=== PATIENT | male | born 1990 | race Caucasian/White ===

== ENCOUNTER 2022-06-18 10:36 | Inpatient (IN) | payer SELFPAY ==
[2022-06-18 10:40] VITALS: BP 115/79; PULSE 70; RESP 18; TEMP 36.8; O2SAT 99; BMI 21.5
--- NOTE | 2022-06-18 10:49 | ED_ITS ---
Documented by User: RIVAS Fagan 06/18/22 16:07 HPI - Abdominal Pain General: Chief Complaint: Abdominal Pain Stated Complaint: abd pain Time Seen by Provider: 06/18/22 10:38 Source: patient Mode of arrival: ambulatory Limitations: no limitations History of Present Illness: Patient is a nice 31-year-old male who presents to ED today with a complaint of abdominal pain over the past 3 to 4 days. Patient tells me when pain started it felt like he initially had eaten too much . He states since that time he has had fairly constant pain throughout his upper abdomen and periumbilical regions with exacerbations of significant discomfort. Patient states he was initially seen at [facility] and had labs and CT imaging performed. He states these were essentially normal although triage mentioned he had told them something regarding elevated liver enzymes. Patient was seen at [place] [facility] yesterday and had lab work performed but no imaging completed. Patient tells me last night his pain was the worst it had been since onset. He states he is having repetitive episodes of nausea and vomiting. Denies bloody emesis. He is having small bowel movements and passing flatulence. No fevers. Patient denies any previous episodes. No previous abdominal surgeries. He is an otherwise healthy 31-year-old male with no significant PMH and takes no medications. Denies alcohol use. Denies heavy NSAID use-has been taking ibuprofen since pain started. MD elicited complaint: abdominal pain Pertinent past history: none Onset (ago): day(s) Pain Consistency: constant Location: Epigastric, Periumbilical and RUQ Severity: severe Quality: cramping, stabbing and sharp Radiation: none Migration to: no migration Exacerbating factors: eating and other (lying flat) Relieving factors: nothing Associated Symptoms: Reports nausea and vomiting; Denies chills, diarrhea, dysuria, fever(s), heartburn, hematochezia, hematemesis and melena Review of Systems Const: Denies: fever(s), chills, body aches, fatigue or malaise Card: Denies: chest pain Resp: Denies: dyspnea GI: Reports: abdominal pain, nausea and vomiting; Denies: hematemesis, heartburn, diarrhea, hematochezia or melena : Denies: flank pain or dysuria Musc: Denies: neck pain, back pain, extremity pain or joint pain Skin/Breast: Denies: rash Neuro: Denies: headache(s), numbness in extremities, weakness in extremities or sensory changes Physical Exam Const: COMMON NORMALS: average body habitus, patient oriented x3, no limitations, healthy appearing, alert and well nourished GENERAL APPEARANCE: cooperative and in distress (appears uncomfortable) HENMT: COMMON NORMALS: normocephalic and atraumatic HEAD & SCALP: normal to inspection, normocephalic and atraumatic Chest: COMMONS NORMALS: normal inspection of the chest and normal palpation of entire chest wall Resp: COMMON NORMALS: normal respiratory effort and clear to auscultation bilaterally AUSCULTATION: clear to auscultation bilaterally Cardio: COMMON NORMALS: regular rate and regular rhythm RATE: regular rate RHYTHM: regular rhythm GI: COMMON NORMALS: No hepatosplenomegaly present and no masses INSPECTION: Yes normal to inspection AUSCULTATION: Yes Hypoactive bowel sounds present PALPATION: Yes Tenderness to palpation present (GI) (epigastric, RUQ, periumbilical; guarding present ), Yes Guarding due to palpation present (GI), No Rigid due to palpation and Yes No hepatosplenomegaly present : COMMON NORMALS: Yes no CVA tenderness BLADDER/KIDNEY EXAM: Yes no CVA tenderness Back/Pelvis: COMMON NORMALS: no CVA tenderness, thoracic and lumbar spine normal to inspection, no thoracic nor lumbar tenderness and thoraco-lumbar ROM normal Extremity: COMMON NORMALS: normal to inspection GENERAL: Yes normal exam except as noted Neuro: HOWARD COMA SCALE: document GCS findings [place] coma scale eye opening: Spontaneous Howard coma scale verbal response: Orientated [place] coma scale motor response: Obey commands Howard coma scale total score: 15 COMMON NORMALS: patient oriented x3, moves all extremities, no focal motor deficits and no sensory deficits noted SENSORIUM/ORIENTATION: Yes alert Skin: COMMON NORMALS: no rashes or lesions noted GENERAL SKIN EXAM: no rashes or lesions noted Course Consultations: Consultation #1: Dr. Cunningham-will evaluate in ED; following evaluation he will admit to his service. Vital Signs: Vital signs: Vital Signs Temperature 98.2 F 06/18/22 10:40 Pulse Rate 70 06/18/22 10:40 Respiratory Rate 18 06/18/22 11:17 Blood Pressure 115/79 06/18/22 10:40 Pulse Oximetry 99 06/18/22 10:40 Oxygen Delivery Me thod 06/18/22 10:40 MDM - Abdominal Pain Lab Data : 06/18/22 11:00 06/18/22 11:00 Labs/Radiology: Radiology Impressions Gallbladder Ultrasound 06/18/22 11:00 IMPRESSION: 1. Cholelithiasis with mild gallbladder wall thickening and mild dilatation common bile duct suspicious for acute cholecystitis. 2. Mild edema in the pancreatic head suspicious for pancreatitis. 3. Dilatation common bile duct measuring 8.1 mm recommend further evaluation with MRCP to exclude choledocholithiasis and gallstone pancreatitis. 4. No hydronephrosis in RIGHT kidney. Notified RIVAS Fagan at 06/18/2022 12:23 PM. Abdomen/Pelvis CT 06/18/22 11:19 IMPRESSION: 1. Inflammatory stranding and edema about the head of the pancreas extending into the gallbladder fossa and about the duodenal C-loop suspicious for pancreatitis or cholecystitis. Mild gallbladder wall thickening. No drainable fluid collections. 2. Mild dilatation of the common bile duct measuring 8 mm. This can be further evaluated MRCP to exclude choledocholithiasis and gallstone pancreatitis. 3. Small amount of free fluid in the cul-de-sac. 4. No other acute findings. Notified RIVAS Fagan at 06/18/2022 12:20 PM. Cholangiopancreatography MRI 06/18/22 11:57 Impression: 1. No evidence of choledocholithiasis. Mild prominence of the common bile duct measuring 7.5 mm. No pancreatic ductal dilatation. 2. Above described findings suspicious for cholecystitis. 3. Mild edema in the head and proximal body of the pancreas may be reactive from cholecystitis versus pancreatitis. Correlation with pancreatic enzymes. 4. No hydronephrosis in either kidney. 5. No other suspicious findings. Laboratory Results WBC 13.6 10^3/uL (4.0-10.0) H 06/18/22 11:00 RBC 4.99 10^6/uL (4.1-5.3) 06/18/22 11:00 Hgb 15.1 g/dL (11.7-16.6) 06/18/22 11:00 Hct 46.0 % (42.0-52.0) 06/18/22 11:00 MCV 92.2 fl (80-94) 06/18/22 11:00 MCH 30.3 pg (28.0-34.0) 06/18/22 11:00 MCHC 32.8 g/dL (30.0-36.0) 06/18/22 11:00 RDW 13.2 % (12.1-15.1) 06/18/22 11:00 Plt Count 255 10^3/cmm (130-400) 06/18/22 11:00 MPV 10.0 fL (7.4-10.4) 06/18/22 11:00 Neut % (Auto) 79.1 % 06/18/22 11:00 Lymph % (Auto) 12.3 % 06/18/22 11:00 [place] % (Auto) 7.2 % 06/18/22 11:00 Eos % (Auto) 0.8 % 06/18/22 11:00 Baso % (Auto) 0.2 % 06/18/22 11:00 Neut # (Auto) 10.77 10^3/uL (1.8-7.7) H 06/18/22 11:00 Lymph # (Auto) 1.7 10^3/uL (0.8-4.8) 06/18/22 11:00 [place] # (Auto) 1.0 10^3/uL (0.2-0.9) H 06/18/22 11:00 Eos # (Auto) 0.1 10^3/uL (0.0-0.8) 06/18/22 11:00 Baso # (Auto) 0.0 10^3/uL (0.0-0.1) 06/18/22 11:00 Nucleated RBC % (auto) 0 % 06/18/22 11:00 Nucleated RBCs # 0.0 /100WBC 06/18/22 11:00 Sodium 137 mmol/L (136-145) 06/18/22 11:00 Potassium 3.9 mmol/L (3.5-5.1) 06/18/22 11:00 Chloride 100 mmol/L (98-107) 06/18/22 11:00 Carbon Dioxide 24 mmol/L (22-29) 06/18/22 11:00 Anion Gap 16.9 (5-19) 06/18/22 11:00 BUN 10 mg/dL (6-20) 06/18/22 11:00 Creatinine 0.5 mg/dL (0.7-1.2) L 06/18/22 11:00 GFR Calculation 196.6 mL/min (90-130) H 06/18/22 11:00 Glucose 100 mg/dL (65-115) 06/18/22 11:00 Calculated Osmolality 283 mOsm/kg (285-295) L 06/18/22 11:00 Calcium 9.5 mg/dL (8.5-10.5) 06/18/22 11:00 Total Bilirubin 5.0 mg/dL (0.15-1.2) H 06/18/22 11:00 AST 230 U/L (0-40) H 06/18/22 11:00 ALT 693 U/L (0-41) H 06/18/22 11:00 Alkaline Phosphatase 180 U/L (40-130) H 06/18/22 11:00 Total Protein 6.5 g/dL (6.6-8.7) L 06/18/22 11:00 Albumin 4.5 g/dL (3.5-5.2) 06/18/22 11:00 Globulin 2.0 g/dL (1.3-4.6) 06/18/22 11:00 Lipase 2824 U/L (13-60) H 06/18/22 11:00 Urine Color Radha (Yellow) 06/18/22 11:20 Urine Appearance Cloudy (CLEAR) 06/18/22 11:20 Urine pH 5 (5-7) 06/18/22 11:20 Ur Specific [place] 1.030 (1.005-1.030) 06/18/22 11:20 Urine Protein 1+ (Negative) H 06/18/22 11:20 Urine Glucose (UA) Norm (Normal) 06/18/22 11:20 Urine Ketones 3+ (Negative) H 06/18/22 11:20 Urine Blood Neg (Negative) 06/18/22 11:20 Urine Nitrate Positive (Negative) H 06/18/22 11:20 Urine Bilirubin 2+ (Negative) H 06/18/22 11:20 Urine Urobilinogen 8 mg/dL (Negative) H 06/18/22 11:20 Ur Leukocyte Esterase Trace (Negative) H 06/18/22 11:20 Urine RBC 0-4 /hpf (0-2) H 06/18/22 11:20 Urine WBC 5-10 /hpf (0-5) H 06/18/22 11:20 Ur Squamous Epith Cells Rare /hpf (0-5) 06/18/22 11:20 Amorphous Sediment Not Reportable 06/18/22 11:20 Urine Bacteria 3+ /hpf (NONE) H 06/18/22 11:20 Hyaline Casts 0-4 /lpf H 06/18/22 11:20 Urine Mucus 1+ /hpf 06/18/22 11:20 Discharge Plan Discharge Patient Disposition: Admitted As Inpatient Clinical Impression: Acute calculous cholecystitis, Pancreatitis Condition: Stable Prescriptions: No Action No Known Home Medications Coding Level of Care Code ED Blower Operator for Chg Fwd Exam Comprehensive Documented by User: Jose Manuel Kee DO 06/18/22 16:04 HPI - Abdominal Pain General: Chief Complaint: Abdominal Pain Stated Complaint: abd pain Time Seen by Provider: 06/18/22 10:38 Physical Exam Neuro: HOWARD COMA SCALE: document GCS findings [place] coma scale total score: 15 Course Vital Signs: Vital signs: Vital Signs Temperature 98.2 F 06/18/22 10:40 Pulse Rate 70 06/18/22 10:40 Respiratory Rate 18 06/18/22 11:17 Blood Pressure 115/79 06/18/22 10:40 Pulse Oximetry 99 06/18/22 10:40 Oxygen Delivery Me thod 06/18/22 10:40 MDM - Abdominal Pain Medical Decision Making Monitored patient reviewed and discussed with Abby Kline throughout the ER course. Labs and imaging reviewed. Ms. Kline had talked to Dr. Cunningham the Cunningham was seen patient recommends admission with IV antibiotics pain control n.p.o. we will reevaluate in the morning anticipate cholecystectomy. Orders written Medical Records I reviewed the patient's medical records. Lab Data I reviewed the patient's lab results. : 06/18/22 11:00 06/18/22 11:00 Labs/Radiology: Radiology Impressions Gallbladder Ultrasound 06/18/22 11:00 IMPRESSION: 1. Cholelithiasis with mild gallbladder wall thickening and mild dilatation common bile duct suspicious for acute cholecystitis. 2. Mild edema in the pancreatic head suspicious for pancreatitis. 3. Dilatation common bile duct measuring 8.1 mm recommend further evaluation with MRCP to exclude choledocholithiasis and gallstone pancreatitis. 4. No hydronephrosis in RIGHT kidney. Notified RIVAS Fagan at 06/18/2022 12:23 PM. Abdomen/Pelvis CT 06/18/22 11:19 IMPRESSION: 1. Inflammatory stranding and edema about the head of the pancreas extending into the gallbladder fossa and about the duodenal C-loop suspicious for buckner creatitis or cholecystitis. Mild gallbladder wall thickening. No drainable fluid collections. 2. Mild dilatation of the common bile duct measuring 8 mm. This can be further evaluated MRCP to exclude choledocholithiasis and gallstone pancreatitis. 3. Small amount of free fluid in the cul-de-sac. 4. No other acute findings. Notified RIVAS Fagan at 06/18/2022 12:20 PM. Cholangiopancreatography MRI 06/18/22 11:57 Impression: 1. No evidence of choledocholithiasis. Mild prominence of the common bile duct measuring 7.5 mm. No pancreatic ductal dilatation. 2. Above described findings suspicious for cholecystitis. 3. Mild edema in the head and proximal body of the pancreas may be reactive from cholecystitis versus pancreatitis. Correlation with pancreatic enzymes. 4. No hydronephrosis in either kidney. 5. No other suspicious findings. Laboratory Results WBC 13.6 10^3/uL (4.0-10.0) H 06/18/22 11:00 RBC 4.99 10^6/uL (4.1-5.3) 06/18/22 11:00 Hgb 15.1 g/dL (11.7-16.6) 06/18/22 11:00 Hct 46.0 % (42.0-52.0) 06/18/22 11:00 MCV 92.2 fl (80-94) 06/18/22 11:00 MCH 30.3 pg (28.0-34.0) 06/18/22 11:00 MCHC 32.8 g/dL (30.0-36.0) 06/18/22 11:00 RDW 13.2 % (12.1-15.1) 06/18/22 11:00 Plt Count 255 10^3/cmm (130-400) 06/18/22 11:00 MPV 10.0 fL (7.4-10.4) 06/18/22 11:00 Neut % (Auto) 79.1 % 06/18/22 11:00 Lymph % (Auto) 12.3 % 06/18/22 11:00 [place] % (Auto) 7.2 % 06/18/22 11:00 Eos % (Auto) 0.8 % 06/18/22 11:00 Baso % (Auto) 0.2 % 06/18/22 11:00 Neut # (Auto) 10.77 10^3/uL (1.8-7.7) H 06/18/22 11:00 Lymph # (Auto) 1.7 10^3/uL (0.8-4.8) 06/18/22 11:00 [place] # (Auto) 1.0 10^3/uL (0.2-0.9) H 06/18/22 11:00 Eos # (Auto) 0.1 10^3/uL (0.0-0.8) 06/18/22 11:00 Baso # (Auto) 0.0 10^3/uL (0.0-0.1) 06/18/22 11:00 Nucleated RBC % (auto) 0 % 06/18/22 11:00 Nucleated RBCs # 0.0 /100WBC 06/18/22 11:00 Sodium 137 mmol/L (136-145) 06/18/22 11:00 Potassium 3.9 mmol/L (3.5-5.1) 06/18/22 11:00 Chloride 100 mmol/L (98-107) 06/18/22 11:00 Carbon Dioxide 24 mmol/L (22-29) 06/18/22 11:00 Anion Gap 16.9 (5-19) 06/18/22 11:00 BUN 10 mg/dL (6-20) 06/18/22 11:00 Creatinine 0.5 mg/dL (0.7-1.2) L 06/18/22 11:00 GFR Calculation 196.6 mL/min (90-130) H 06/18/22 11:00 Glucose 100 mg/dL (65-115) 06/18/22 11:00 Calculated Osmolality 283 mOsm/kg (285-295) L 06/18/22 11:00 Calcium 9.5 mg/dL (8.5-10.5) 06/18/22 11:00 Total Bilirubin 5.0 mg/dL (0.15-1.2) H 06/18/22 11:00 AST 230 U/L (0-40) H 06/18/22 11:00 ALT 693 U/L (0-41) H 06/18/22 11:00 Alkaline Phosphatase 180 U/L (40-130) H 06/18/22 11:00 Total Protein 6.5 g/dL (6.6-8.7) L 06/18/22 11:00 Albumin 4.5 g/dL (3.5-5.2) 06/18/22 11:00 Globulin 2.0 g/dL (1.3-4.6) 06/18/22 11:00 Lipase 2824 U/L (13-60) H 06/18/22 11:00 Urine Color Radha (Yellow) 06/18/22 11:20 Urine Appearance Cloudy (CLEAR) 06/18/22 11:20 Urine pH 5 (5-7) 06/18/22 11:20 Ur Specific [place] 1.030 (1.005-1.030) 06/18/22 11:20 Urine Protein 1+ (Negative) H 06/18/22 11:20 Urine Glucose (UA) Norm (Normal) 06/18/22 11:20 Urine Ketones 3+ (Negative) H 06/18/22 11:20 Urine Blood Neg (Negative) 06/18/22 11:20 Urine Nitrate Positive (Negative) H 06/18/22 11:20 Urine Bilirubin 2+ (Negative) H 06/18/22 11:20 Urine Urobilinogen 8 mg/dL (Negative) H 06/18/22 11:20 Ur Leukocyte Esterase Trace (Negative) H 06/18/22 11:20 Urine RBC 0-4 /hpf (0-2) H 06/18/22 11:20 Urine WBC 5-10 /hpf (0-5) H 06/18/22 11:20 Ur Squamous Epith Cells Rare /hpf (0-5) 06/18/22 11:20 Amorphous Sediment Not Reportable 06/18/22 11:20 Urine Bacteria 3+ /hpf (NONE) H 06/18/22 11:20 Hyaline Casts 0-4 /lpf H 06/18/22 11:20 Urine Mucus 1+ /hpf 06/18/22 11:20 Discharge Plan Discharge Patient Disposition: Admitted As Inpatient Clinical Impression: Acute calculous cholecystitis, Pancreatitis Condition: Stable Prescriptions: No Action No Known Home Medications Coding Level of Care Code ED Blower Operator for Chg Fwd Exam Comprehensive
--- NOTE | 2022-06-18 11:00 | US_ITS ---
WS: [id number] ULTRASOUND ABDOMEN LIMITED CLINICAL INFORMATION: RUQ pain COMPARISON: None. FINDINGS: Limited examination due to bowel gas. Liver Size: Mild hepatomegaly. Craniocaudal length: 16.4 cm. Echogenicity: Normal. Surface nodularity: None. Mass (size and location): None. Bile ducts Intrahepatic ducts: Normal. Common bile duct diameter: 0.8 cm. Gallbladder Present Gallstones: Present Gallbladder sludge: None. Gallbladder wall thickening: Present Pericholecystic fluid: None. Sonographic Miranda sign: Present Pancreas Mild edema in the head of the pancreas. Right kidney: Normal. Hydronephrosis: None. Size: 11.8 cm x 5.2 cm x 4.2 cm. Abdominal aorta and IVC Visualized portions are normal. Ascites: None. US/US gall bladder [id number] IMPRESSION: 1. Cholelithiasis with mild gallbladder wall thickening and mild dilatation co mmon bile duct suspicious for acute cholecystitis. 2. Mild edema in the pancreatic head suspicious for pancreatitis. 3. Dilatation common bile duct measuring 8.1 mm recommend further evaluation w ith MRCP to exclude choledocholithiasis and gallstone pancreatitis. 4. No hydronephrosis in RIGHT kidney. Notified RIVAS Fagan at 06/18/2022 12:23 PM.
[2022-06-18 11:14] LABS: Basophils % 0.2 %; Eosinophils # 0.1 10^3/uL (0.0-0.8); Eosinophils % 0.8 %; Hemoglobin 15.1 g/dL (11.7-16.6); Lymphocytes # 1.7 10^3/uL (0.8-4.8); Lymphocytes % 12.3 %; Mean Corpuscular HGB Conc 32.8 g/dL (30.0-36.0); Mean Corpuscular Hemoglobin 30.3 pg (28.0-34.0); Mean Corpuscular Volume 92.2 fl (80-94); Monocytes % 7.2 %; Neutrophils # 10.77 10^3/uL (1.8-7.7); Neutrophils % 79.1 %; Nucleated Red Blood Cells % 0 %; Platelet Count 255 10^3/cmm (130-400); Red Blood Count 4.99 10^6/uL (4.1-5.3); Red Cell Distribution Width 13.2 % (12.1-15.1); White Blood Count 13.6 10^3/uL (4.0-10.0)
[2022-06-18 11:17] VITALS: RESP 18
[2022-06-18] MEDS: morphine 4 mg/mL SDV 1 mL IVP ×2 (11:17→16:35)
[2022-06-18] MEDS: ondansetron 2 mg/ML SDV 2 mL 4 MG IVP ×2 (11:17→21:55)
[2022-06-18] MEDS: lidocaine 2% viscous 15 ML, aluminum-mag hydrox-simethicon 30 ML, sucralfate oral liq 1 GM PO (11:17)
[2022-06-18] MEDS: sodium chloride 0.9% 1,000 ML 999 ML IV (11:18)
--- NOTE | 2022-06-18 11:19 | CT_ITS ---
WS: [id number] CT ABDOMEN PELVIS TECHNIQUE: Noncontrast CT of the abdomen and pelvis with coronal and sagittal reformatted images. CLINICAL INFORMATION: epigastric/RUQ/periumbilical pain; N/V COMPARISON: None. DLP: 400.[address] scans at [facility] use at least one of these dose optimization techniques: automated e xposure control; mA and/or kV adjustment per patient size (includes targeted exams where dose is matc hed to clinical indication); or iterative reconstruction. FINDINGS: Diffuse inflammatory stranding and edema about the pancreas, duodenal C-loop, and extending into the gallbladder fossa. Findings suspicious for pancreatitis versus cholecystitis. Gallbladder wall thicke sarah. Cholelithiasis better seen on the concurrent ultrasound. Mild dilatation common bile duct measu ring 8.1 mm. Common bile duct could be further evaluated with MRCP to exclude choledocholithiasis and gallstone pancreatitis. Mild hepatomegaly. Adrenal glands are normal. No hydronephrosis. Splenic granulomas. Normal GE juncti on. No drainable fluid collections. Normal appendix in the RIGHT lower quadrant. Small amount of free fluid in the cul-de-sac. CT/CT abdomen pelvis wo con [id number] IMPRESSION: 1. Inflammatory stranding and edema about the head of the pancreas extending i nto the gallbladder fossa and about the duodenal C-loop suspicious for pancreat itis or cholecystitis. Mild gallbladder wall thickening. No drainable fluid col lections. 2. Mild dilatation of the common bile duct measuring 8 mm. This can be further evaluated MRCP to exclude choledocholithiasis and gallstone pancreatitis. 3. Small amount of free fluid in the cul-de-sac. 4. No other acute findings. Notified RIVAS Fagan at 06/18/2022 12:20 PM.
[2022-06-18 11:35] LABS: Alanine Aminotransferase 693 U/L (0-41); Albumin Level 4.5 g/dL (3.5-5.2); Alkaline Phosphatase 180 U/L (40-130); Anion Gap 16.9 (5-19); Aspartate Amino Transferase 230 U/L (0-40); Blood Urea Nitrogen 10 mg/dL (6-20); Calcium 9.5 mg/dL (8.5-10.5); Carbon Dioxide 24 mmol/L (22-29); Chloride 100 mmol/L (98-107); Glomerular Filtration Rate 196.6 mL/min (90-130); Glucose 100 mg/dL (65-115); Osmolality Calculated 283 mOsm/kg (285-295); Potassium 3.9 mmol/L (3.5-5.1); Sodium 137 mmol/L (136-145); Total Protein 6.5 g/dL (6.6-8.7)
[2022-06-18 11:56] LABS: Lipase 2824 U/L (13-60)
--- NOTE | 2022-06-18 11:57 | MR_ITS ---
WS: [id number] MRI/MRCP OF THE ABDOMEN WITHOUT GADOLINIUM ENHANCEMENT TECHNIQUE: Thin and thick slab MRCP, Axial T2, Coronal MRCP, Axial Dual Echo, and Axial 2-D Fiesta imaging was obtained. Coronal 2-D Fiesta imaging. CLINICAL INFORMATION: elvated T bili COMPARISON: CT June 18, 2022 FINDINGS: Mild diffuse gallbladder thickening with cholelithiasis. Pericholecystic fluid suspicious for cholecy stitis. Inflammatory stranding and edema about the pancreas and duodenum upper abdomen. No intrahepat ic biliary ductal dilatation. Mild dilatation of the common bile duct measuring 7.5 mm. No evidence o f obstructing choledocholithiasis. Common bile duct tapers normally distally. No pancreatic mass. Mild edema in the head and body of the pancreas. Recommend correlation for pancre atitis. No hydronephrosis in either kidney. Normal spleen. Normal caliber upper abdominal aorta. MR/MR MRCP [id number] Impression: 1. No evidence of choledocholithiasis. Mild prominence of the common bile duct measuring 7.5 mm. No pancreatic ductal dilatation. 2. Above described findings suspicious for cholecystitis. 3. Mild edema in the head and proximal body of the pancreas may be reactive fr om cholecystitis versus pancreatitis. Correlation with pancreatic enzymes. 4. No hydronephrosis in either kidney. 5. No other suspicious findings.
[2022-06-18 12:34] LABS: Glucose Urine UA Norm (Normal); Ketones Urine 3+ (Negative); Protein Urine 1+ (Negative); Urine Appearance Cloudy (CLEAR); Urine Color Amber (Yellow); pH Urine 5 (5-7)
[2022-06-18 12:35] LABS: Add Urine Culture? Yes; Add Urine Microscopic? YES; Bacteria Urine 3+ /hpf; Bilirubin Urine 2+ (Negative); Blood Urine Neg (Negative); Hyaline Casts Urine 0-4 /lpf; Leukocyte Esterase Urine Trace (Negative); Mucus Urine 1+ /hpf; Nitrate Urine Positive (Negative); RBC Urine 0-4 /hpf (0-2); Squamous Epithelial Cell Urine RARE /hpf (0-5); Urobilinogen Urine 8 mg/dL (Negative)
[2022-06-18] MEDS: piperacillin-tazobactam 3.375 GM in sodium chloride 0.9% (plus) 50 ML IV (12:41)
--- NOTE | 2022-06-18 13:40 | PC.PHAR ---
pt states he takes no rx or otc medications no meds pull up on ext med history
--- NOTE | 2022-06-18 15:54 | P.HP_ITS ---
Providers/Chief Complaint Chief Complaint: abd pain History of Present Illness Chad Zamudio is a 31 year old male who presents to the hospital with a 3-day history of right upper quadrant abdominal pain. Pain is sharp and constant. Pain radiates to his back and to his epigastrium. This does cause nausea but he has not vomited. He also reports diarrhea. Denies any hematochezia or melena. Denies any fever or chills. This is the third hospital he has been to the last 3 days for the symptoms. Ultrasound and ERCP are suspicious for acute cholecystitis. Common bile duct is dilated to 7.5 mm however it is not obstructed at this moment. Review of Systems General: Reports: 10 or more systems reviewed and unremarkable except in HPI and below Medications/Allergies Home Medications Medication Instructions Recorded Confirmed Last Taken Type No Known Home Medications 06/18/22 06/18/22 Unknown History Allergies Allergy/AdvReac Type Severity Reaction Status Date / Time No Known Allergies Allergy Verified 06/18/22 13:39 Vitals/I&O/Wt Last Vital Signs Temp 98.2 F 06/18/22 10:40 Pulse 70 06/18/22 10:40 Resp 18 06/18/22 11:17 BP 115/79 06/18/22 10:40 Pulse Ox 99 06/18/22 10:40 O2 Del Method 06/18/22 10:40 06/18/22 06/18/22 06/18/22 06:59 14:59 22:59 Intake Total 1000 / 1000 Balance 1000 / 1000 Weight last 48 hrs Weight 150 lb Physical Exam Narrative: General : Patient is well developed , no acute distress, oriented x3 Head : Normal cephalic, a-traumatic. Ears : Pinnae and external canal are normal. Hearing is normal. Eyes : PERRLA, Sclera and injection are normal. No conjunctival discharge. Nose : Mucous membranes are without erythema. Throat : buccal mucosa is normal, gums are without significant recession or hypertrophy. Lungs : Equal chest rise bilaterally, no use of accessory muscles, trachea is midline. Cor : Rate and rhythm are normal. Abdomen : Soft, ND, tender right upper quadrant, no g/r/m Extremities : No edema, no cyanosis or clubbing, dorsalis pedis pulses are present bilaterally, non-tender to palpation of calves. Upper extremities are normal bilaterally. Back : non-tender to palpation, no CVA tenderness. Neuro : CN II - XII intact, Upper and lower extremities have equal and full strength Data : 06/18/22 11:00 06/18/22 11:00 A&P Assessment and plan (1) Acute calculous cholecystitis: Status: Acute (2) Pancreatitis: Status: Acute Plan Admit to [facility] IV fluids Antibiotics Clear liquid diet, n.p.o. after midnight 2 OR tomorrow for laparoscopic cholecystectomy with intraoperative cholangiogram The risks and benefits of the procedure, including but not limited to, bleeding, infection, scar, numbness, pain, damage to surrounding structures, damage to common bile duct requiring additional surgery, conversion to an open procedure, were explained to the patient. He is understanding of the risks and wishes to proceed. Attestations Medical Necessity Statement*: Patient requires admission for laparoscopic cholecystectomy tomorrow Coding Level of Care Code Acute Service Advocate Contact for [facility] Dave Diagnoses Acute calculous cholecystitis K80.00 Pancreatitis K85.90
[2022-06-18 16:35] VITALS: RESP 18; O2SAT 98
[2022-06-18] MEDS: pantoprazole 40 mg SDV IVP (16:35)
[2022-06-18] MEDS: sodium chloride 0.9% 1,000 ML 150 ML IV ×2 (16:35→22:06)
[2022-06-18] MEDS: heparin 5,000 unit/mL INJ 1 mL 5000 UNIT SUBCUT (16:36)
[2022-06-18 18:33] VITALS: BP 116/85; PULSE 79; RESP 18; O2SAT 97
[2022-06-18 20:00] VITALS: BP 130/75; PULSE 61; RESP 18; TEMP 36.8; O2SAT 100
[2022-06-18 20:27] VITALS: BP 113/80; PULSE 67; RESP 16; O2SAT 99
[2022-06-18] MEDS: HYDROcodone-acetaminophen 5-325 mg Tablet 1 TAB PO (21:59)
--- NOTE | 2022-06-18 22:32 | PC.NURSE ---
Out of stock of Morphine Dr. Cunningham notified. PRN Curtis ordered. Ordered to try PO pain medication first.
[2022-06-19] VITALS (26 sets, daily range): BP systolic 91–125; BP diastolic 50–78; PULSE 55–88; RESP 15–22; TEMP 36.4–36.9; O2SAT 97–100
--- NOTE | 2022-06-19 | SCC_ITS ---
Procedure done: Laparoscopic Cholecystectomy with intraoperative cholangiogram 15.5 seconds of fluoroscopic guidance, for a cumulative dose of 3.99 mGy, was provided to Dr. Cunningham by the radiology department. C-arm images of the abdomen were saved for the patient's permanent record. [facility]
[2022-06-19] MEDS: HYDROmorphone 1 mg/mL INJ 1 mL IVP (00:39)
[2022-06-19 02:39] LABS: Basophils % 0.2 %; Eosinophils # 0.1 10^3/uL (0.0-0.8); Eosinophils % 1.2 %; Hematocrit 38.8 % (42.0-52.0); Lymphocytes # 2.2 10^3/uL (0.8-4.8); Lymphocytes % 18.9 %; Mean Corpuscular HGB Conc 33.5 g/dL (30.0-36.0); Mean Corpuscular Hemoglobin 30.3 pg (28.0-34.0); Mean Corpuscular Volume 90.4 fl (80-94); Mean Platelet Volume 11.8 fL (7.4-10.4); Monocytes # 1.1 10^3/uL (0.2-0.9); Monocytes % 9.9 %; Neutrophils % 69.4 %; Nucleated Red Blood Cells % 0 %; Platelet Count 146 10^3/cmm (130-400); Positive C 1; Red Blood Count 4.29 10^6/uL (4.1-5.3); Red Cell Distribution Width 13.2 % (12.1-15.1); White Blood Count 11.4 10^3/uL (4.0-10.0)
[2022-06-19 02:56] LABS: Alanine Aminotransferase 422 U/L (0-41); Albumin Level 3.1 g/dL (3.5-5.2); Alkaline Phosphatase 156 U/L (40-130); Blood Urea Nitrogen 6 mg/dL (6-20); Calcium 8.1 mg/dL (8.5-10.5); Carbon Dioxide 24 mmol/L (22-29); Chloride 102 mmol/L (98-107); Globulin 1.9 g/dL (1.3-4.6); Glomerular Filtration Rate 254.3 mL/min (90-130); Glucose 79 mg/dL (65-115); Osmolality Calculated 277 mOsm/kg (285-295); Sodium 135 mmol/L (136-145); Total Bilirubin 4.1 mg/dL (0.15-1.2)
[2022-06-19 03:37] LABS: Anion Gap 12.9 (5-19)
[2022-06-19 03:38] LABS: Aspartate Amino Transferase 109 U/L (0-40); Potassium 3.9 mmol/L (3.5-5.1)
[2022-06-19 03:41] LABS: Slide Review Slide Review Perform
[2022-06-19] MEDS: heparin 5,000 unit/mL INJ 1 mL 5000 UNIT SUBCUT ×2 (04:18→17:15)
[2022-06-19] MEDS: sodium chloride 0.9% 1,000 ML 150 ML IV ×2 (04:18→20:12)
[2022-06-19] MEDS: HYDROcodone-acetaminophen 5-325 mg Tablet 1 TAB PO ×3 (04:18→17:14)
--- NOTE | 2022-06-19 05:35 | PC.NURSE ---
[place] wipe used at this time per protocol and patient provided with clean gown.
[2022-06-19] MEDS: ondansetron 2 mg/ML SDV 2 mL 4 MG IVP ×2 (11:51→13:10)
--- NOTE | 2022-06-19 11:53 | P.ANESASSM_ITS ---
Pre-Anesthetic Assessment Height/Weight: Height 1.78 m Weight 68.039 kg Temp Pulse Resp BP Pulse Ox O2 Del Method 98.3 F 88 18 116/65 97 06/19/22 11:31 06/19/22 11:31 06/19/22 11:31 06/19/22 11:31 06/19/22 11:31 06/19/22 11:31 Operation Date: 06/19/22 12:15 Proposed Procedures p Laparoscopic Cholecystectomy w/ Cholangiograms(Not Applicable) - Ronald Cunningham DO Familial anesthetic complications: none Was Beta Hawa taken within 24 hours: N/A Was Clonidine taken within 24 hours: N/A Last intake: Intake Last Liquid Date 06/19/22 Last Liquid Time 00:00 Last Solid Date 06/19/22 Last Solid Time 22:00 Social Tobacco and No alcohol Exam alert, oriented x 3 and regular rate & rhythm Airway Submandibular: within normal limits Cervical ROM: within normal limits Mallampati: Class II Dentition: chipped Pulmonary Chronic Obstructive Pulmonary Disease Anesthetic Plan ASA status: 2 Anesthesia: General Medications/Allergies Home Medications Medication Instructions Recorded Confirmed Last Taken Type No Known Home Medications 06/18/22 06/18/22 Unknown History Allergies Allergy/AdvReac Type Severity Reaction Status Date / Time No Known Allergies Allergy Verified 06/18/22 13:39 Current Medications Generic Name Dose Route Start Last Admin Trade Name Freq PRN Reason Stop Dose Admin Hydrocodone Bitart/Acetaminophen 1 tab 06/18/22 16:01 06/19/22 08:55 Hydrocodone-Acetaminophen 5-325 Mg Tablet PO 1 tab Q4H PRN Administration MODERATE TO SEVERE PAIN Heparin Sodium (Porcine) 5,000 unit 06/18/22 16:15 06/19/22 04:18 Heparin 5,000 Unit/Ml Inj 1 Ml SUBCUT 5,000 unit Q12H DEMI Administration Hydromorphone HCl 1 mg 06/18/22 21:45 06/19/22 00:39 Hydromorphone 1 Mg/Ml Inj 1 Ml IVP 1 mg Q4H PRN Administration SEVERE PAIN Sodium Chloride 1,000 mls @ 150 mls/hr 06/18/22 16:15 06/19/22 04:18 Sodium Chloride 0.9% IV 150 mls/hr .Q6H40M DEMI Administration Morphine Sulfate 4 mg 06/18/22 16:01 06/18/22 16:35 Morphine 4 Mg/Ml Sdv 1 Ml IVP 4 mg Q4H PRN Administration SEVERE PAIN Ondansetron HCl 4 mg 06/18/22 16:01 06/18/22 21:55 Ondansetron 2 Mg/Ml Sdv 2 Ml IVP 4 mg Q8H PRN Administration vomiting, or N/V if npo Pantoprazole Sodium 40 mg 06/18/22 16:15 06/18/22 16:35 Pantoprazole 40 Mg Sdv IVP 40 mg Q24H DEMI Administration Data Anesthesia : 06/19/22 02:20 06/19/22 02:20 Short CBC 06/18/22 06/19/22 Range/Units 11:00 02:20 WBC 13.6 H 11.4 H (4.0-10.0) 10^3/uL Hgb 15.1 13.0 (11.7-16.6) g/dL Hct 46.0 38.8 L (42.0-52.0) % MCV 92.2 90.4 (80-94) fl Plt Count 255 146 D (130-400) 10^3/cmm Neut % (Auto) 79.1 69.4 % Neut # (Auto) 10.77 H 7.90 H (1.8-7.7) 10^3/uL BMP 06/18/22 06/19/22 11:00 02:20 Sodium 137 135 L Potassium 3.9 3.9 Chloride 100 102 Carbon Dioxide 24 24 BUN 10 6 Creatinine 0.5 L 0.4 L Glucose 100 79 Calcium 9.5 8.1 L Liver Function 06/18/22 06/19/22 Range/Units 11:00 02:20 Total Bilirubin 5.0 H 4.1 H (0.15-1.2) mg/dL AST 230 H 109 H (0-40) U/L ALT 693 H 422 H (0-41) U/L Alkaline Phosphatase 180 H 156 H (40-130) U/L Albumin 4.5 3.1 L (3.5-5.2) g/dL Urine 06/18/22 Range/Units 11:20 Urine Color Radha (Yellow) Urine Appearance Cloudy (CLEAR) Urine pH 5 (5-7) Ur Specific [place] 1.030 (1.005-1.030) Urine Protein 1+ H (Negative) Urine Glucose (UA) Norm (Normal) Urine Ketones 3+ H (Negative) Urine Nitrate Positive H (Negative) Urine Bilirubin 2+ H (Negative) Ur Leukocyte Esterase Trace H (Negative) Urine RBC 0-4 H (0-2) /hpf Urine WBC 5-10 H (0-5) /hpf Microbiology 06/18/22 11:20 Urine Culture - Preliminary Urine,Clean Catch Cardiac Studies: No Data to Display
[2022-06-19] MEDS: sodium chloride 0.9% 1,000 ML 30 ML IV (11:54)
--- NOTE | 2022-06-19 12:32 | FLR_ITS ---
PROCEDURE INFORMATION: Exam: FL or XR Cholangiogram And/Or Pancreatography; Interpretation Only Exam date and time: 06/19/2022 2:15 PM Age: 31 years old Clinical indication: Other: Elevated bilirubin; Additional info: Choly with ioc TECHNIQUE: Imaging protocol: Cholangiogram and/or pancreatography. Image interpretation only. The interpreting radiologist was not present during procedure. COMPARISON: MR MRCP [id number] 06/18/2022 12:54 PM FINDINGS: Procedure summary: See separate operative report for detailed procedure summary. Procedural imaging: There is contrast opacification of the intrahepatic and extrahepatic bile ducts with a small amount of reflux into the distal pancreatic duct. No free spillage into the duodenum is visualized. A bandlike region density is noted to the left of the common bile duct. The it is uncertain with this is contrast or artifact. No images were provided before the cholangiogram injection was performed. Fluoro time 15.5 seconds. Cumulative dose 3.99 mGy SC/C-arm Fluoroscopy [id number] IMPRESSION: 1. Cholangiogram with filling of the bile ducts but no visible spillage into the duodenum. 2. Linear band of density to the left of the common bile duct is noted. A contrast leak is not excluded. Evaluation is limited with no pre-injection images provided.
--- NOTE | 2022-06-19 12:59 | PC.CHAP ---
Pastoral Care Encounter/Spiritual Assessment Type of Contact [] Declined cigar sorter visit [] Patient/Family/Request visit [] Outpatient visit [] Follow-up visit [] Physician referral [] Code/Alert [x] Routine visit [] Staff referral [] Actively dying [] Patient sleeping [] Family support [] [] Out of room [] Palliative care [] [] Receiving care in room [] Pre-surgical visit [] Trauma [] Long length of stay [] ICU visit [] Other: Relational/Emotional Strength [] Patient feels connected with others/family/visitors/staff [] Distress [] Loneliness/isolation [] Abandonment Spirituality of Patient [] Person of Ines [] Attends Zoroastrian of their Ines [] Believes in Prayer [] Reads Bible or Quaker materials [] There are Spiritual issues to be addressed Senior Technologist Interventions [x] Prayer [x] Active listening [x] Non-anxious presence [x] Spiritual/emotional support [] Crisis/trauma care [] Spiritual counseling [] Bereavement support [] Provided bereavement packet [] Provided Bible/devotional materials [] Provided toy/stuffed animal, coloring book to patient or family member [] Provided Communion [] Anointing/[place] [] Salvation [x] Completed spiritual assessment [] Other: Impact on Illness or Injury [] Angry [] Fearful [] Anxious [] Often cries [] Exhaustion [] Unable to work [] Unable to attend synagogue [] Unable to walk/stand [] Unable to read [] Unable to drive [] Unable to eat/drink [] Unable to sleep [] Unable to be with family [] Patient intubated [] Other: Summary prayed regarding surgery Time spent with patient
[2022-06-19] MEDS: fentaNYL 50 mcg/mL INJ 2mL IVP (13:10)
--- NOTE | 2022-06-19 13:18 | W.PM.OPSUD ---
Surgery/Procedure H&P Update DATE OF PROCEDURE: June 19, 2022 DATE H&P PERFORMED: 06/18/22 PLANNED PROCEDURE: Operation Date: 06/19/22 12:15 Proposed Procedures p Laparoscopic Cholecystectomy w/ Cholangiograms(Not Applicable) - Ronald Cunningham DO
--- NOTE | 2022-06-19 13:32 | P.OP_ITS ---
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 Ronald Cunningham DO Anesthesia: General Estimated blood loss (mL): 5 Complications: none apparent Brief History: Patient with elevated LFTs and pancreatitis was diagnosed with acute cholecyst itis in the ER. Laparoscopic cholecystectomy with intraoperative cholangiogram was indicated. The risks and benefits were explained and documented. Procedure: Patient was wheeled into the operative room and placed on the OR table in a supine position. Abdomen was inspected prepped and draped in usual sterile fashion. Time-out was performed and all present were in agreement. A 15 blade scalp was used to make a stab incision in the left upper quadrant and intra- abdominal insufflation was achieved using a Veress needle. After localizing the tissue incisions were made and a 5 millimeter trocar was placed into the umbilicus as well as 2 in the right upper quadrant. A 12 millimeter trocar was placed in the epigastrium. Gallbladder was grasped and elevated. The triangle of Calot was carefully dissected using blunt dissection and electrocautery until the triangle of [place]ot clearly identified. The cystic duct was cut and clipped close to the gallbladder. A cholangiocather was inserted into the cystic duct and a cholangiogram was performed. By my reading, there was no passage of contrast into the duodenum. The cathter was then removed. The cystic duct was clipped proximally and double clipped distally. The duct was then ligated proximally. The cystic artery was doubly clipped and ligated. The gallbladder was then removed from the liver bed using electrocautery. The gallbladder was removed from the abdomen using an Endo-Catch bag through the epigastric incision. The liver bed was inspected and no bleeding was seen. The abdomen was irrigated and suctioned. All ports removed. Skin was washed and dried. Incisions were closed with 3-0 and 4-O Vicryl in a subcuticular interrupted fashion. Skin glue was applied. Patient tolerated the procedure well.
--- NOTE | 2022-06-19 13:46 | PC.NURSE ---
Patient left for surgery at 1130 am.
--- NOTE | 2022-06-19 15:33 | PC.NURSE ---
Patient back from surgery at 1330. Patients sounds good, has five dermabond sites. Still groggy from pain medications.
[2022-06-19] MEDS: pantoprazole 40 mg SDV IVP (17:16)
--- NOTE | 2022-06-19 18:23 | ANE.PACU2 ---
Inpatient post-anesthesia follow up: Airway intact: Yes Vital signs: Temperature 97.9 F Pulse Rate 81 Respiratory Rate 18 Blood Pressure 124/78 Pulse Oximetry 97 Oxygen Delivery Me thod [ Room Air Current Rate & Del adam] Oxygen Delivery Me thod Room Air Oxygen Flow Rate Fraction of Inspir ed Oxygen Hydration adequate: Yes Nausea and vomiting: No Pain level: 4 Mental status: Baseline
--- NOTE | 2022-06-19 18:36 | PC.NURSE ---
I spoke with Dr. Cunningham regarding patient's possible transfer to another facility and he states that he is waiting on Radiology to read the images from surgery to determine definite transfer need. I went in and spoke with the patient and his family had left for the evening. He gave verbal consent for me to call his stepmom, Sheela, at and update her on the current status. He also inquired about advancing his diet. I called and spoke with Sheela and provided her an update on patient's status and that if he is going to transfer, it will likely be tomorrow before he is transferred. She verbalized understanding and stated that they might come back over this evening, they weren't sure. I informed them they were welcome to stay the night if they wished with patient. I spoke with Dr. Cunningham and he provided a verbal order for a clear liquid diet. I updated Prem Roman RN and she provided patient with a liquid diet. Patient continues to have increased, severe pain at this time and was provided Hydrocodone an hour ago. I called and spoke with Dr. Cunningham and he provided a verbal order for Dilaudid 1 mg every 4 hours PRN for severe pain in addition to the [place] as well as Toradol 30mg every 6 hours scheduled for pain control.
[2022-06-19] MEDS: HYDROmorphone 1 mg/mL INJ 1 mL 0.5 MG IVP (19:24)
[2022-06-19] MEDS: ketorolac 30 mg/mL INJ IVP (20:11)
[2022-06-20] MEDS: ketorolac 30 mg/mL INJ IVP ×3 (00:53→13:14)
[2022-06-20] MEDS: sodium chloride 0.9% 1,000 ML 150 ML IV ×2 (02:37→13:13)
[2022-06-20 04:00] VITALS: BP 109/54; PULSE 66; RESP 20; TEMP 36.3; O2SAT 98
[2022-06-20 04:07] LABS: Basophils % 0.1 %; Eosinophils % 0.1 %; Hematocrit 39.4 % (42.0-52.0); Hemoglobin 13.1 g/dL (11.7-16.6); Lymphocytes # 1.3 10^3/uL (0.8-4.8); Lymphocytes % 12.1 %; Mean Corpuscular HGB Conc 33.2 g/dL (30.0-36.0); Mean Corpuscular Hemoglobin 30.8 pg (28.0-34.0); Mean Corpuscular Volume 92.5 fl (80-94); Mean Platelet Volume 10.5 fL (7.4-10.4); Monocytes # 1.1 10^3/uL (0.2-0.9); Monocytes % 9.8 %; Neutrophils # 8.53 10^3/uL (1.8-7.7); Neutrophils % 77.5 %; Nucleated Red Blood Cells % 0 %; Platelet Count 190 10^3/cmm (130-400); Red Blood Count 4.26 10^6/uL (4.1-5.3); Red Cell Distribution Width 13.2 % (12.1-15.1)
[2022-06-20 04:41] LABS: Alanine Aminotransferase 332 U/L (0-41); Albumin Level 3.2 g/dL (3.5-5.2); Alkaline Phosphatase 222 U/L (40-130); Anion Gap 12.9 (5-19); Aspartate Amino Transferase 80 U/L (0-40); Blood Urea Nitrogen 6 mg/dL (6-20); Calcium 8.5 mg/dL (8.5-10.5); Carbon Dioxide 27 mmol/L (22-29); Chloride 101 mmol/L (98-107); Globulin 2.6 g/dL (1.3-4.6); Glomerular Filtration Rate 196.6 mL/min (90-130); Glucose 108 mg/dL (65-115); Magnesium 1.7 mg/dL (1.7-2.3); Osmolality Calculated 282 mOsm/kg (285-295); Phosphorus 2.2 mg/dL (2.5-4.5); Potassium 3.9 mmol/L (3.5-5.1); Sodium 137 mmol/L (136-145); Total Bilirubin 2.1 mg/dL (0.15-1.2); Total Protein 5.8 g/dL (6.6-8.7)
[2022-06-20] MEDS: heparin 5,000 unit/mL INJ 1 mL 5000 UNIT SUBCUT (04:55)
[2022-06-20] MEDS: HYDROcodone-acetaminophen 5-325 mg Tablet 1 TAB PO (04:57)
[2022-06-20 08:00] VITALS: BP 117/77; PULSE 68; RESP 16; TEMP 36.6; O2SAT 96
[2022-06-20] MEDS: piperacillin-tazobactam 3.375 GM in sodium chloride 0.9% (plus) 50 ML IV (10:01)
[2022-06-20 11:12] LABS: SARS Covid-2 Antigen Negative (Negative)
[2022-06-20 12:00] VITALS: BP 120/71; PULSE 59; RESP 18; TEMP 36.6; O2SAT 100
--- NOTE | 2022-06-20 12:13 | PC.NURSE ---
Called report to Herlinda Church RN at [facility] @ [phone]
--- NOTE | 2022-06-20 13:03 | P.DS_ITS ---
Discharge Providers Date of Admission: 06/18/22 16:01 Date of Discharge: June 20, 2022 Attending Provider at Admission: Ronald Cunningham DO Attending Provider at Discharge: Ronald Cunningham DO Diagnoses at Discharge Discharge Diagnosis (1) Acute calculous cholecystitis: Status: Acute (2) Pancreatitis: Status: Acute (3) Sphincter of Oddi dysfunction: Status: Acute Reason for Visit Reason for Visit: abd pain Hospital Course Hospital Course Is a very pleasant 31-year-old gentleman who came in with right upper quadrant abdominal pain. He was found to have acute cholecystitis along with hyperbilirubinemia, elevated LFTs and pancreatitis. He underwent a laparoscopic cholecystectomy with intraoperative cholangiogram. Cholangiogram identified a sphincter of Oddi dysfunction. He did well postoperatively and was transferred to [facility] for ERCP. Physical Exam Narrative: General : Patient is well developed , no acute distress, oriented x3 Head : Normal cephalic, a-traumatic. Ears : Pinnae and external canal are normal. Hearing is normal. Eyes : PERRLA, Sclera and injection are normal. No conjunctival discharge. Nose : Mucous membranes are without erythema. Throat : buccal mucosa is normal, gums are without significant recession or hypertrophy. Lungs : Equal chest rise bilaterally, no use of accessory muscles, trachea is midline. Cor : Rate and rhythm are normal. Abdomen : Soft, ND, appropriately tender, no g/r/m Incisions intact without erythema or exudate Extremities : No edema, no cyanosis or clubbing, dorsalis pedis pulses are present bilaterally, non-tender to palpation of calves. Upper extremities are normal bilaterally. Back : non-tender to palpation, no CVA tenderness. Neuro : CN II - XII intact, Upper and lower extremities have equal and full strength Discharge Data Studies Completed and Pending Completed Studies During Hospitalization Category Date Time Status CT abdomen pelvis wo con [id number] Stat Cat Scan 06/18/22 11:19 Completed XR cholangio operative [id number] Routine Exams 06/19/22 Completed MR MRCP [id number] Stat MRI 06/18/22 11:57 Completed US gall bladder [id number] Stat Ultrasound 06/18/22 11:00 Completed Pending at discharge Category Date Time Status C-arm Fluoroscopy [id number] Routine Exams 06/19/22 12:32 Taken ES surgery / GI images Routine Exams 06/19/22 12:32 Taken Complete Blood Count w/Auto AM LABS Lab 06/21/22 04:00 Ordered Comprehensive Metabolic Panel AM LABS Lab 06/21/22 04:00 Ordered Magnesium AM LABS Lab 06/21/22 04:00 Ordered Phosphorus AM LABS Lab 06/21/22 04:00 Ordered Pathology: Surgical [PTH] Routine Pth 06/19/22 14:50 Received Radiology Impressions Gallbladder Ultrasound 06/18/22 11:00 IMPRESSION: 1. Cholelithiasis with mild gallbladder wall thickening and mild dilatation common bile duct suspicious for acute cholecystitis. 2. Mild edema in the pancreatic head suspicious for pancreatitis. 3. Dilatation common bile duct measuring 8.1 mm recommend further evaluation with MRCP to exclude choledocholithiasis and gallstone pancreatitis. 4. No hydronephrosis in RIGHT kidney. Notified RIVAS Fagan at 06/18/2022 12:23 PM. Abdomen/Pelvis CT 06/18/22 11:19 IMPRESSION: 1. Inflammatory stranding and edema about the head of the pancreas extending into the gallbladder fossa and about the duodenal C-loop suspicious for pa ncreatitis or cholecystitis. Mild gallbladder wall thickening. No drainable fluid collections. 2. Mild dilatation of the common bile duct measuring 8 mm. This can be further evaluated MRCP to exclude choledocholithiasis and gallstone pancreatitis. 3. Small amount of free fluid in the cul-de-sac. 4. No other acute findings. Notified RIVAS Fagan at 06/18/2022 12:20 PM. Cholangiopancreatography MRI 06/18/22 11:57 Impression: 1. No evidence of choledocholithiasis. Mild prominence of the common bile duct measuring 7.5 mm. No pancreatic ductal dilatation. 2. Above described findings suspicious for cholecystitis. 3. Mild edema in the head and proximal body of the pancreas may be reactive from cholecystitis versus pancreatitis. Correlation with pancreatic enzymes. 4. No hydronephrosis in either kidney. 5. No other suspicious findings. C-Arm Fluoroscopy 06/19/22 12:32 IMPRESSION: 1. Cholangiogram with filling of the bile ducts but no visible spillage into the duodenum. 2. Linear band of density to the left of the common bile duct is noted. A contrast leak is not excluded. Evaluation is limited with no pre-injection images provided. Cholangiogram,Operative 06/19/22 12:32 IMPRESSION: 1. Cholangiogram with filling of the bile ducts but no visible spillage into the duodenum. 2. Linear band of density to the left of the common bile duct is noted. A contrast leak is not excluded. Evaluation is limited with no pre-injection images provided. Laboratory Results WBC 11.0 10^3/uL (4.0-10.0) H 06/20/22 03:54 RBC 4.26 10^6/uL (4.1-5.3) 06/20/22 03:54 Hgb 13.1 g/dL (11.7-16.6) 06/20/22 03:54 Hct 39.4 % (42.0-52.0) L 06/20/22 03:54 MCV 92.5 fl (80-94) 06/20/22 03:54 MCH 30.8 pg (28.0-34.0) 06/20/22 03:54 MCHC 33.2 g/dL (30.0-36.0) 06/20/22 03:54 RDW 13.2 % (12.1-15.1) 06/20/22 03:54 Plt Count 190 10^3/cmm (130-400) D 06/20/22 03:54 MPV 10.5 fL (7.4-10.4) H 06/20/22 03:54 Neut % (Auto) 77.5 % 06/20/22 03:54 Lymph % (Auto) 12.1 % 06/20/22 03:54 [place] % (Auto) 9.8 % 06/20/22 03:54 Eos % (Auto) 0.1 % 06/20/22 03:54 Baso % (Auto) 0.1 % 06/20/22 03:54 Neut # (Auto) 8.53 10^3/uL (1.8-7.7) H 06/20/22 03:54 Lymph # (Auto) 1.3 10^3/uL (0.8-4.8) 06/20/22 03:54 [place] # (Auto) 1.1 10^3/uL (0.2-0.9) H 06/20/22 03:54 Eos # (Auto) 0.0 10^3/uL (0.0-0.8) 06/20/22 03:54 Baso # (Auto) 0.0 10^3/uL (0.0-0.1) 06/20/22 03:54 Nucleated RBC % (auto) 0 % 06/20/22 03:54 Nucleated RBCs # 0.0 /100WBC 06/20/22 03:54 Sodium 137 mmol/L (136-145) 06/20/22 03:54 Potassium 3.9 mmol/L (3.5-5.1) 06/20/22 03:54 Chloride 101 mmol/L (98-107) 06/20/22 03:54 Carbon Dioxide 27 mmol/L (22-29) 06/20/22 03:54 Anion Gap 12.9 (5-19) 06/20/22 03:54 BUN 6 mg/dL (6-20) 06/20/22 03:54 Creatinine 0.5 mg/dL (0.7-1.2) L 06/20/22 03:54 GFR Calculation 196.6 mL/min (90-130) H 06/20/22 03:54 Glucose 108 mg/dL (65-115) 06/20/22 03:54 Calculated Osmolality 282 mOsm/kg (285-295) L 06/20/22 03:54 Calcium 8.5 mg/dL (8.5-10.5) 06/20/22 03:54 Phosphorus 2.2 mg/dL (2.5-4.5) L 06/20/22 03:54 Magnesium 1.7 mg/dL (1.7-2.3) 06/20/22 03:54 Total Bilirubin 2.1 mg/dL (0.15-1.2) H 06/20/22 03:54 AST 80 U/L (0-40) H 06/20/22 03:54 ALT 332 U/L (0-41) H 06/20/22 03:54 Alkaline Phosphatase 222 U/L (40-130) H 06/20/22 03:54 Total Protein 5.8 g/dL (6.6-8.7) L 06/20/22 03:54 Albumin 3.2 g/dL (3.5-5.2) L 06/20/22 03:54 Globulin 2.6 g/dL (1.3-4.6) 06/20/22 03:54 Lipase 2824 U/L (13-60) H 06/18/22 11:00 Urine Color Radha (Yellow) 06/18/22 11:20 Urine Appearance Cloudy (CLEAR) 06/18/22 11:20 Urine pH 5 (5-7) 06/18/22 11:20 Ur Specific [place] 1.030 (1.005-1.030) 06/18/22 11:20 Urine Protein 1+ (Negative) H 06/18/22 11:20 Urine Glucose (UA) Norm (Normal) 06/18/22 11:20 Urine Ketones 3+ (Negative) H 06/18/22 11:20 Urine Blood Neg (Negative) 06/18/22 11:20 Urine Nitrate Positive (Negative) H 06/18/22 11:20 Urine Bilirubin 2+ (Negative) H 06/18/22 11:20 Urine Urobilinogen 8 mg/dL (Negative) H 06/18/22 11:20 Ur Leukocyte Esterase Trace (Negative) H 06/18/22 11:20 Urine RBC 0-4 /hpf (0-2) H 06/18/22 11:20 Urine WBC 5-10 /hpf (0-5) H 06/18/22 11:20 Ur Squamous Epith Cells Rare /hpf (0-5) 06/18/22 11:20 Amorphous Sediment Not Reportable 06/18/22 11:20 Urine Bacteria 3+ /hpf (NONE) H 06/18/22 11:20 Hyaline Casts 0-4 /lpf H 06/18/22 11:20 Urine Mucus 1+ /hpf 06/18/22 11:20 SARS-CoV-2 Ag (Rapid) Negative (Negative) 06/20/22 10:20 Procedures Performed Laparoscopic cholecystectomy with intraoperative cholangiogram Vitals Last Vital Signs Temp 98 F 06/20/22 12:00 Pulse 59 L 06/20/22 12:00 Resp 18 06/20/22 12:00 BP 120/71 06/20/22 12:00 Pulse Ox 100 06/20/22 12:00 O2 Del Method 06/20/22 12:00 Discharge Plan Discharge Patient Disposition: Xfer Other Condition: Stable Prescriptions: New hydrocodone-acetaminophen 7.5-325 mg tablet 1 tab PO Q6H Qty: 20 0RF amoxicillin-pot clavulanate 875-125 mg tablet 1 tab PO BID 10 Days Qty: 20 0RF Discharge Orders: Discharge Order (Routine); Ordered 06/20/22 Ordered By: Ronald Cunningham Referrals: Ronald Cunningham DO [Physician] - 2 weeks Discharge Activity: Resume usual activity Patient Instructions: Post Anesthesia Care Activity Restrictions/Additional Instructions: Do not soak incisions underwater for 2 weeks. Shower daily Discharge Attestations Time Spent in Discharge Care*: less than 30 min Quality Metrics Clinical Quality Measures [ No reported AMI, CVA or VTE this stay] Coding Level of Care Code Acute g [facility] note Diagnoses Acute calculous cholecystitis K80.00 Pancreatitis K85.90 Sphincter of Oddi dysfunction K83.4
--- NOTE | 2022-06-20 13:26 | PC.NURSE ---
PSYCHIATRIC ambulance on unit to transfer patient to [facility] at approximately 1325. PCS and [employer] form provided as requested with no issues noted. Prem Roman RN at bedside to provide report to EMS.
[2022-06-20 13:31] VITALS: BP 120/71; PULSE 59; RESP 18; TEMP 36.6; O2SAT 100
== END 2022-06-20 13:33 | disposition short-term general hospital (02) | DRG 417 ==
LOC: ER 16:07 → MEDSURG 18:32
PROVIDERS: Physician Assistant; Admitting Provider Surgery; Emergency Provider Family Medicine; Visit Provider Surgery
PROC: 0FT44ZZ Resection of Gallbladder, Percutaneous Endoscopic Approach (ICD-10-PCS; CPT 47562; principal; 2022-06-19 12:15)
DX: K80.00 Calculus of gallbladder with acute cholecystitis without obstruction (principal); K85.90 Acute pancreatitis without necrosis or infection, unspecified; K83.09 Other cholangitis; E80.6 Other disorders of bilirubin metabolism
CPT/HCPCS: 36415; 74176; 74181; 74300; 76000; 76705; 80053; 81001; 83690; 83735; 84100; 85025; 87086; 87426; 88304; 96365; 96372; 96375; 96376; 99285; C9113; J1100; J1170; J1644; J1885; J2270; J2405; J2543; J2704; J2710; J3010; J3490; J7030

== ENCOUNTER 2024-06-07 05:41 | Emergency (ER) | payer SELFPAY ==
[2024-06-07 05:40] VITALS: BP 107/65; PULSE 63; RESP 16; TEMP 36.7; O2SAT 100; BMI 25.8
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
--- NOTE | 2024-06-07 05:48 | CTR_ITS ---
PROCEDURE INFORMATION: Exam: CT Abdomen And Pelvis With Contrast Exam date and time: 06/07/2024 6:12 AM Age: 33 years old Clinical indication: Abdominal pain; Prior surgery; Surgery date: 6+ months; Surgery type: Gallbladder; Additional info: Trauma TECHNIQUE: Imaging protocol: Computed tomography of the abdomen and pelvis with contrast. Radiation optimization: All CT scans at this facility use at least one of these dose optimization techniques: automated exposure control; mA and/or kV adjustment per patient size (includes targeted exams where dose is matched to clinical indication); or iterative reconstruction. Contrast material: [id number]; Contrast volume: 100 ml; Contrast route: INTRAVENOUS (IV); COMPARISON: MR MRCP [id number] 06/18/2022 12:54 PM RADIATION DOSE METRICS: Total DLP (mGy-cm): 513 FINDINGS: Lungs: Lung bases are clear as visualized. Liver: There is diffuse fatty infiltration of the liver. The liver is otherwise normal. Gallbladder and biliary ducts: The gallbladder is surgically absent. Pancreas: Normal. No ductal dilation. Spleen: Normal. No splenomegaly. Adrenal glands: Normal. No mass. Kidneys and ureters: Normal. No hydronephrosis. Stomach and bowel: Unremarkable. No obstruction. No mucosal thickening. Appendix: No evidence of appendicitis. Intraperitoneal space: Unremarkable. No free air. No significant fluid collection. Vasculature: Unremarkable. No abdominal aortic aneurysm. Lymph nodes: Unremarkable. No enlarged lymph nodes. Urinary bladder: Unremarkable as visualized. Reproductive: Unremarkable as visualized. Bones/joints: Unremarkable. No acute fracture. Soft tissues: Unremarkable. CT/CT abdomen pelvis w con* [id number] IMPRESSION: 1. Mild fatty infiltration of the liver.
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
[2024-06-07 06:04] LABS: Basophils % 0.4 %; Eosinophils # 0.2 10^3/uL (0.0-0.8); Hematocrit 41.8 % (37-53); Lymphocytes % 33.2 %; Mean Corpuscular HGB Conc 33.5 g/dL (30-55); Mean Corpuscular Hemoglobin 30.5 pg (27-33); Mean Corpuscular Volume 91.1 fl (82-101); Mean Platelet Volume 9.7 fL (7.4-10.4); Monocytes # 0.8 10^3/uL (0.2-0.9); Monocytes % 8.4 %; Neutrophils # 4.97 10^3/uL (1.8-7.7); Neutrophils % 55.8 %; Nucleated Red Blood Cells % 0 %; Platelet Count 256 10^3/cmm (157-399); Red Blood Count 4.59 10^6/uL (3.85-5.65); Red Cell Distribution Width 12.1 % (12.1-15.1); White Blood Count 8.92 10^3/uL (3.29-11.43)
[2024-06-07 06:12] VITALS: PULSE 91; RESP 16; O2SAT 99
[2024-06-07] MEDS: iohexol 350 mg/mL 500 mL Btl (per mL) IV (06:17)
[2024-06-07 06:20] LABS: Alanine Aminotransferase 12 U/L (0-41); Alkaline Phosphatase 76 U/L (40-130); Anion Gap 16.1 (5-19); Aspartate Amino Transferase 17 U/L (0-40); Blood Urea Nitrogen 10 mg/dL (6-20); Calcium 8.6 mg/dL (8.5-10.5); Carbon Dioxide 22 mmol/L (22-29); Chloride 102 mmol/L (98-107); Creatinine Clr Calc Pharmacy 144.6877; Globulin 2.6 g/dL (1.3-4.6); Glomerular Filtration Rate 112.8 mL/min (90-130); Glucose 87 mg/dL (65-115); Osmolality Calculated 282 mOsm/kg (285-295); Potassium 3.1 mmol/L (3.5-5.1); Sodium 137 mmol/L (136-145); Total Bilirubin 0.6 mg/dL (0.15-1.2); Total Protein 6.6 g/dL (6.6-8.7)
[2024-06-07 06:27] LABS: Charge for UA Resulting for Rev
[2024-06-07 06:33] LABS: Bilirubin Urine 2+ (Negative); Blood Urine Negative (Negative); Glucose Urine UA Negative (Normal); Ketones Urine 3+ (Negative); Leukocyte Esterase Urine 1+ (Negative); Nitrate Urine Negative (Negative); Protein Urine 1+ (Negative); Urine Appearance Clear (CLEAR); pH Urine 5.5 (5-7)
[2024-06-07 06:35] LABS: Bacteria Urine None Seen /hpf; Hyaline Casts Urine 4.11 /lpf; RBC Urine 0-2 /hpf (0-2); Squamous Epithelial Cell Urine 0-5 /hpf (0-5); Universal Test for UA Present (0); WBC Urine 21-50 /hpf (0-5)
[2024-06-07 06:37] LABS: Specific Gravity, Urine 1.038 (1.005-1.030); Urine Color Yellow (Yellow)
[2024-06-07 06:38] LABS: Add Urine Culture? Yes
[2024-06-07 07:25] VITALS: BP 108/69; PULSE 73; O2SAT 100
== END 2024-06-07 07:26 | disposition home or self-care (01) ==
PROVIDERS: Emergency Provider Family Medicine
DX: M25.522 Pain in left elbow (principal); R10.9 Unspecified abdominal pain; D72.829 Elevated white blood cell count, unspecified; V87.8XXA Person injured in other specified noncollision transport accidents involving motor vehicle (traffic), initial encounter
CPT/HCPCS: 73080; 74177; 80053; 81003; 81015; 85025; 87086; 99285; Q9967